=== PATIENT | female | born 1935 | race Caucasian/White ===

== ENCOUNTER 2020-11-29 12:24 | Outpatient (CLI) | payer MEDICARE | END 2020-11-29 12:25 | disposition home or self-care (01) | LOC: CSHMRI 12:24 | PROVIDERS: ATTEND Anesthesiology Pain Medicine | DX: S32.010G Wedge compression fracture of first lumbar vertebra, subsequent encounter for fracture with delayed healing (principal); S22.080A Wedge compression fracture of T11-T12 vertebra, initial encounter for closed fracture; M47.816 Spondylosis without myelopathy or radiculopathy, lumbar region | CPT/HCPCS: 72148 ==

== ENCOUNTER 2021-07-20 06:21 | Emergency (ER) | payer MEDICARE ==
[2021-07-20 06:36] LABS: #Basophils 0.1 10x3/uL (0.0-0.2); #Eosinphils 0.2 10x3/uL (0.0-0.5); #Monocytes 0.6 10x3/uL (0.0-1.1); %Basophils 0.8 % (0.0-2.0); %Eosinophils 3.8 % (0.0-6.0); %Lymphocytes 35.2 % (18.0-47.0); %Monocytes 9.6 % (0.0-10.0); %Neutrophils 50.4 % (40.0-75.0); Mean Corpuscular HGB CONC 31.6 g/dL (32.0-36.0); Mean Corpuscular Hemoglobin 30.9 pg (27.0-33.0); Mean Corpuscular Volume 97.9 fl (81.6-98.3); Platelet Count 175 10x3/uL (150-450); RBC Distribution Width 12.2 % (11.5-14.5); Red Blood Cell (RBC) Count 4.21 10x6/uL (3.90-5.03)
[2021-07-20] MEDS ORDERED: Furosemide 40 MG/4 ML VIAL ONE (06:43)
[2021-07-20 06:57] LABS: ALT (SGPT) 22 U/L (8-55); AST (SGOT) 30 U/L (5-34); Albumin 3.8 g/dL (3.4-4.8); Alkaline Phosphatase 67 U/L (40-110); Anion Gap 14 mmol/L (10-20); BUN (Urea Nitrogen) 15 mg/dL (9.8-20.1); Bilirubin, Total 0.5 mg/dL (0.2-1.2); Calc. Creatinine Clearance 0 mL/min (70-130); Calcium 8.5 mg/dL (7.8-10.44); Carbon Dioxide 30 mmol/L (23-31); Chloride 103 mmol/L (98-107); Globulin 2.8 g/dL (2.4-3.5); Glucose 125 mg/dL (83-110); Potassium 3.7 mmol/L (3.5-5.1); Protein, Total 6.6 g/dL (5.8-8.1); Sodium 143 mmol/L (136-145)
[2021-07-20] MEDS ORDERED: Aspirin Chewable 81 MG TAB ONE (07:52)
[2021-07-20 08:23] LABS: Troponin I 0.028 ng/mL (< 0.028)
== END 2021-07-20 09:15 | disposition home or self-care (01) ==
LOC: CSHERS 06:21
DX: I50.9 Heart failure, unspecified (principal); I48.91 Unspecified atrial fibrillation; J44.9 Chronic obstructive pulmonary disease, unspecified; I10 Essential (primary) hypertension; M19.90 Unspecified osteoarthritis, unspecified site; Z79.01 Long term (current) use of anticoagulants; Z79.899 Other long term (current) drug therapy
CPT/HCPCS: 71045; 80053; 83880; 84484; 85025; 93005; 96374; J1940